=== PATIENT | female | born 2000 | race Caucasian/White ===

== ENCOUNTER 2023-02-07 15:03 | Emergency (ER) | payer OTHER, SELFPAY ==
[2023-02-07 15:09] VITALS: BP 109/62; PULSE 63; RESP 18; TEMP 36.3; O2SAT 94
--- NOTE | 2023-02-07 15:12 | ED.SKABFB ---
HPI - Skin/Abscess/Foreign Bdy General Chief complaint: Skin/Abscess/Foreign Body Stated complaint: Spider bite Time Seen by Provider: 02/07/23 15:12 Source: patient and family Mode of arrival: ambulatory Limitations: no limitations History of Present Illness HPI narrative: patient is a 23-year-old female without any significant past medical history presents emergency department today ambulatory with steady gait with her friend for evaluation of concerns of infected spider bite to her right lower buttock/thigh. patient states she was cleaning her grandmother's house and thinks that is when she got it on Saturday. She states the area has gotten bigger with the redness. States it is very itchy. She denies any fever or chills. Related Data Allergies Allergy/AdvReac Type Severity Reaction Status Date / Time bupropion Allergy Unknown Verified 02/07/23 15:05 levofloxacin [From Levaquin] Allergy Unknown Verified 02/07/23 15:05 Review of Systems Review of Systems: CONSTITUTIONAL: Denies fever, chills, or sweats. EYES: Denies visual changes, redness, or discharge. ENT: Denies rhinorrhea, congestion, sore throat, or otalgia. CARDIOVASCULAR: Denies chest pain RESPIRATORY: Denies cough or dyspnea. GASTROINTESTINAL: Denies abdominal pain, nausea, vomiting SKIN: infected spider bite with redness/itching/swelling to right lower buttocks/outer thigh MUSCULOSKELETAL: Denies back pain, joint pain, or myalgia. NEUROLOGIC: Denies headache, numbness, or weakness. PSYCHIATRIC: Denies anxiety or depression. 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 HEAD: Normocephalic, atraumatic. EYES: PERRLA ENT: Mucous membranes moist. NECK: Supple. CHEST: Clear to auscultation. No respiratory distress. HEART: Regular rate and rhythm. Normal peripheral pulses. ABDOMEN: Soft, nontender, nondistended, normal active bowel sounds. EXTREMITIES: Normal range of motion. No edema. SKIN: softball sized area of erythema/warmth to the right lower buttocks/upper lateral thigh. there is tenderness. there is pinpoint black center appears like a insect bite. no drainage. NEURO: No focal deficits. Alert and oriented x3. distal NV intact to RLE PSYCH: Normal mood and affect. Course Vital Signs Vital signs: Vital Signs Temperature 97.4 F L 02/07/23 15:09 Pulse Rate 63 02/07/23 15:09 Respiratory Rate 18 02/07/23 15:09 Blood Pressure 109/62 02/07/23 15:09 Pulse Oximetry 94 02/07/23 15:09 Temperature 97.4 F L 02/07/23 15:09 Pulse Rate 63 02/07/23 15:09 Respiratory Rate 18 02/07/23 15:09 Blood Pressure 109/62 02/07/23 15:09 Pulse Oximetry 94 02/07/23 15:09 MDM - Skin/Abscess/Foreign Bdy MDM Narrative Medical decision making narrative: Will put patient on antibiotics to cover for any infection of a spider bite. there is no toxic findings, no signs of systemic infection/sepsis. Discussed other supportive care measures and [id number] medications. Patient is nontoxic in appearance. Stable re-evaluation exam just before discharge. Patient in no acute distress. Vitals within normal limits. Discussed return precautions with the patient including all the red flag signs or symptoms of when to return the patient. The patient verbalized understanding and was agreeable with discharge and close follow-up Differential Diagnosis Differential diagnosis: Likely abscess of skin or subcutaneous tissue, viral exanthem, allergic reaction to drug and cellulitis Medical Records Attestation: I reviewed the patient's medical records. Discharge Plan Discharge Clinical Impression: Infected insect bite Qualifiers: Encounter type: initial encounter Qualified Code(s): W57.XXXA - Bitten or stung by nonvenomous insect and other nonvenomous arthropods, initial encounter Cellulitis Qualifiers: Site of ce
[2023-02-07] MEDS: KETOROLAC 30 MG/ML VIAL (*BKC) IM (15:33)
[2023-02-07] MEDS: diphenhydrAMINE HCl INJ 50 MG/ML VIAL IM (15:33)
[2023-02-07] MEDS: DOXYCYCLINE HYCLATE 100 MG TABLET PO (15:34)
[2023-02-07] MEDS: CEPHALEXIN 500 MG CAPSULE PO (15:34)
== END 2023-02-07 16:16 | disposition home or self-care (01) ==
LOC: ANHED 15:46
PROVIDERS: Emergency Provider Nurse Practitioner
DX: L03.115 Cellulitis of right lower limb (principal); S70.361A Insect bite (nonvenomous), right thigh, initial encounter; W57.XXXA Bitten or stung by nonvenomous insect and other nonvenomous arthropods, initial encounter
CPT/HCPCS: 96372; 99284; A9270; J1200; J1885

== ENCOUNTER 2023-02-08 12:59 | Emergency (ER) | payer OTHER, SELFPAY ==
[2023-02-08 13:05] VITALS: BP 113/72; PULSE 62; RESP 16; TEMP 36.5; O2SAT 100
[2023-02-08] MEDS: CEPHALEXIN 500 MG CAPSULE PO (14:29)
[2023-02-08] MEDS: DOXYCYCLINE HYCLATE 100 MG TABLET PO (14:29)
--- NOTE | 2023-02-08 14:29 | ED.SKABFB ---
HPI - Skin/Abscess/Foreign Bdy General Chief complaint: Skin/Abscess/Foreign Body Stated complaint: spider bite Time Seen by Provider: 02/08/23 13:55 Source: patient and old records reviewed Mode of arrival: ambulatory Limitations: no limitations History of Present Illness HPI narrative: Patient is a 23-year-old female who presents the ED with report of cellulitis to her right thigh. Patient reports she believes she sustained a spider right to her right lateral thigh on Saturday. She has since developed redness, swelling, pain around the site. She was seen in the ED yesterday and Rx'd Keflex and doxy. She received her first dose in the ED. She has not picked up her prescriptions from the pharmacy yet today but noticed that the redness was extending further past the marked line they artur in the ED. Reports increased pain. Has not taken anything for pain today. Denies fevers. Denies drainage. Related Data Allergies Allergy/AdvReac Type Severity Reaction Status Date / Time bupropion Allergy Unknown Verified 02/07/23 15:05 levofloxacin [From Levaquin] Allergy Unknown Verified 02/07/23 15:05 Review of Systems Review of Systems: CONSTITUTIONAL: Denies fever, chills, or sweats. SKIN: See HPI. MUSCULOSKELETAL: See HPI. NEUROLOGIC: Denies headache, numbness, or weakness. All systems reviewed & are unremarkable except as noted in HPI and below Exam Narrative: GENERAL: Well appearing, well-nourished, non-toxic, in no acute distress. HEAD: Normocephalic, atraumatic. NECK: Supple. No adenopathy, no masses. RESPIRATORY: Airway patent, respirations nonlabored. Clear to auscultation bilaterally, no rales, rhonchi, wheezing. CARDIOVASCULAR: Regular rate and rhythm without murmurs, rubs, or gallops. Radial pulses 2+ and equal bilaterally. MUSCULOSKELETAL: Moves all extremities. Strength/ROM intact without gross deformities. Area of warmth, induration, erythema, skin inflammation to R lateral proximal thigh with small pale center spot. No necrosis. No drainage. SKIN: Warm, dry, normal color. No rashes. NEURO: A&O X3. Speech clear. Cranial nerves II-XII grossly intact. Steady gait. No ataxic movements. PSYCHIATRIC: Appropriate mood and affect. Normal interaction. Course Vital Signs Vital signs: Vital Signs Temperature 97.7 F 02/08/23 13:05 Pulse Rate 62 02/08/23 13:05 Respiratory Rate 16 02/08/23 13:05 Blood Pressure 113/72 02/08/23 13:05 Pulse Oximetry 100 02/08/23 13:05 Oxygen Delivery Room Air 02/08/23 13:05 Temperature 97.7 F 02/08/23 13:05 Pulse Rate 62 02/08/23 13:05 Respiratory Rate 16 02/08/23 13:05 Blood Pressure 113/72 02/08/23 13:05 Pulse Oximetry 100 02/08/23 13:05 Oxygen Delivery Room Air 02/08/23 13:05 MDM - Skin/Abscess/Foreign Bdy MDM Narrative Medical decision making narrative: Advised patient to tack picker antibiotics from the pharmacy, would not expect redness to improve after 1 dose of abx in the ED yesterday. Given additional dose here. No systemic evidence of infection at this time. No signs of sepsis. Afebrile, nontoxic appearing. Given additional return precautions. D/C in stable condition. Medical Records Attestation: I reviewed the patient's medical records. 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 Continue to monitor wound. Recommend cool compresses, Benadryl as ne
== END 2023-02-08 14:50 | disposition home or self-care (01) ==
PROVIDERS: Emergency Provider Physician Assistant
DX: L03.115 Cellulitis of right lower limb (principal); S70.361D Insect bite (nonvenomous), right thigh, subsequent encounter; W57.XXXD Bitten or stung by nonvenomous insect and other nonvenomous arthropods, subsequent encounter
CPT/HCPCS: 99283; A9270